=== PATIENT | male | born 1995 | race Caucasian/White ===

== ENCOUNTER 2018-09-03 19:40 | Emergency (ER) | payer OTHER ==
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
[2018-09-03 21:01] VITALS: BP 128/80
== END 2018-09-03 21:01 | disposition home or self-care (01) ==
DX: S06.0X0A Concussion without loss of consciousness, initial encounter (principal); M79.642 Pain in left hand; V18.0XXA Pedal cycle driver injured in noncollision transport accident in nontraffic accident, initial encounter; Y93.55 Activity, bike riding; Z88.0 Allergy status to penicillin

== ENCOUNTER → 2018-10-28 | Outpatient (CLI) | payer OTHER | LOC: BMCIMAGING 08:03 ==